=== PATIENT | female | born 1940 | race Two or more races ===

== ENCOUNTER → 2016-12-03 | Outpatient (REF) | payer MEDICARE ==
[2016-12-03 13:11] LABS: MEAN CORPUSCULAR HEMOGLOBIN 29.9 pg (27.0-33.0); MEAN CORPUSCULAR HGB CONC 33.2 g/dl (32.0-36.5); RED CELL DISTRIBUTION WIDTH 12.8 % (11.5-14.5); WHITE BLOOD COUNT 5.2 10^3/uL (4.0-10.0)
[2016-12-03 13:47] LABS: ALBUMIN/GLOBULIN RATIO 1.25 (1.00-1.93); ALKALINE PHOSPHATASE 153 U/L (45-117); ALT/SGPT 21 U/L (12-78); ANION GAP 8 MEQ/L (8-16); AST/SGOT 18 U/L (15-37); BILIRUBIN,TOTAL 0.6 MG/DL (0.2-1.0); BLOOD UREA NITROGEN 17 MG/DL (7-18); CALCIUM LEVEL 9.1 MG/DL (8.8-10.2); CARBON DIOXIDE LEVEL 30 MEQ/L (21-32); CHLORIDE LEVEL 104 MEQ/L (98-107); CHOLESTEROL LEVEL 172 MG/DL (<200); CREATININE FOR GFR 0.72 MG/DL (0.55-1.02); GLOMERULAR FILTRATION RATE > 60.0 (>39); GLUCOSE, FASTING 78 MG/DL (83-110); POTASSIUM SERUM 3.9 MEQ/L (3.5-5.1); SODIUM LEVEL 142 MEQ/L (136-145); TOTAL PROTEIN 7.2 GM/DL (6.4-8.2); TRIGLYCERIDES LEVEL 201 MG/DL (<150)
== END ==
LOC: M SFHCPLAZ 10:15
PROVIDERS: ATTEND Nurse Practitioner Adult Health
DX: I10 Essential (primary) hypertension (principal); E55.9 Vitamin D deficiency, unspecified; E78.2 Mixed hyperlipidemia
CPT/HCPCS: 36415; 80053; 80061; 82306; 85027; G0463

== ENCOUNTER 2017-06-23 19:24 | Inpatient (IN) | payer MEDICARE ==
[2017-06-23] MEDS: MORPHINE 2 MG/ML 1ML SYRINGE (J2270) IV (20:05)
[2017-06-23] MEDS: MORPHINE 4 MG/ML 1ML VIAL/SYRINGE (J2270) IV (20:54)
[2017-06-23] MEDS ORDERED: PROPOFOL 200 MG/20 ML VIAL As Ordered (22:06)
[2017-06-23 22:10] LABS: HEMATOCRIT 37.4 % (36.0-47.0); HEMOGLOBIN 12.4 g/dl (12.0-15.5); MEAN CORPUSCULAR HEMOGLOBIN 29.5 pg (27.0-33.0); MEAN CORPUSCULAR HGB CONC 33.2 g/dl (32.0-36.5); PLATELET COUNT, AUTOMATED 394 10^3/uL (150-450); RED CELL DISTRIBUTION WIDTH 12.8 % (11.5-14.5); WHITE BLOOD COUNT 17.1 10^3/uL (4.0-10.0)
[2017-06-23 22:14] LABS: INR 1.05; PROTHROMBIN TIME 13.9 SECONDS (12.4-14.5)
[2017-06-23 22:15] LABS: PARTIAL THROMBOPLASTIN TIME 27.1 SECONDS (26.8-37.9)
[2017-06-23] MEDS ORDERED: oxyCODONE 5MG TAB PO ×2 (22:15)
[2017-06-23] MEDS ORDERED: MORPHINE 4 MG/ML 1ML VIAL/SYRINGE (J2270) IV (22:15)
[2017-06-23 22:19] LABS: ANION GAP 13 MEQ/L (8-16); BLOOD UREA NITROGEN 29 MG/DL (7-18); CALCIUM LEVEL 9.1 MG/DL (8.8-10.2); CARBON DIOXIDE LEVEL 24 MEQ/L (21-32); CHLORIDE LEVEL 102 MEQ/L (98-107); CREATININE FOR GFR 1.42 MG/DL (0.55-1.30); GLOMERULAR FILTRATION RATE 38.4 (>39); GLUCOSE, FASTING 199 MG/DL (70-100); POTASSIUM SERUM 3.4 MEQ/L (3.5-5.1); SODIUM LEVEL 139 MEQ/L (136-145)
[2017-06-23] MEDS: PROPOFOL 200 MG/20 ML VIAL IV (23:45)
[2017-06-24] MEDS ORDERED: LIDOCAINE 2% INJ 100 MG/5 ML SDV (FOR ANES.) As Ordered (01:18)
[2017-06-24] MEDS ORDERED: fentaNYL 250 MCG/5 ML INJECTION (J3010) As Ordered (01:18)
[2017-06-24] MEDS ORDERED: ePHEDrine SULFATE 25 MG/5 ML(5MG/ML) SYRINGE As Ordered (01:18)
[2017-06-24] MEDS ORDERED: HYDROmorphone HCL 2 MG/ML 1ML VIAL (J1170) As Ordered (01:18)
[2017-06-24] MEDS ORDERED: dexameTHASONE 4 MG/ML 1ML VIAL (J1100) As Ordered (01:18)
[2017-06-24] MEDS ORDERED: MIDAZOLAM INJ 2 MG/2 ML VIAL (J2250) As Ordered (01:19)
[2017-06-24] MEDS ORDERED: PHENYLephrine HCL 500 MCG/5 ML (100MCG/ML) SYRINGE (J2370) As Ordered (01:19)
[2017-06-24] MEDS ORDERED: PROPOFOL 200 MG/20 ML VIAL As Ordered (01:19)
[2017-06-24] MEDS ORDERED: ONDANSETRON 4MG/2ML VIAL (J2405) As Ordered ×2 (01:19→09:39)
[2017-06-24] MEDS ORDERED: ROCURONIUM BROMIDE 50 MG/5 ML VIAL As Ordered (01:19)
[2017-06-24] MEDS: ceFAZolin 1GM INJ (J0690 PER 500MG) As Ordered (02:05)
[2017-06-24] MEDS ORDERED: SUGAMMADEX SODIUM 500 MG/5 ML VIAL (BRIDION) As Ordered (02:18)
[2017-06-24] MEDS ORDERED: HYDROmorphone HCL 1 MG/ML SYRINGE (J1170) IV (04:15)
[2017-06-24] MEDS ORDERED: fentaNYL 100 MCG/2 ML INJECTION (J3010) IV (04:15)
[2017-06-24] MEDS: LR 1,000 ML IV ×3 (04:15→06:08)
[2017-06-24] MEDS ORDERED: ONDANSETRON 4MG/2ML VIAL (J2405) IV (04:15)
[2017-06-24] MEDS: SIMVASTATIN 20 MG TAB PO ×2 (05:08→22:03)
[2017-06-24] MEDS: ACETAMINOPHEN 500 MG TAB PO ×4 (06:00→23:03)
[2017-06-24] MEDS ORDERED: FLEET ENEMA PR (06:15)
[2017-06-24] MEDS ORDERED: MORPHINE 4 MG/ML 1ML VIAL/SYRINGE (J2270) IV (06:15)
[2017-06-24 07:16] LABS: BASO % 0.1 % (0.0-1.0); HEMATOCRIT 28.1 % (36.0-47.0); IMMATURE GRANULOCYTE % 0.4 % (0-3.0); LYMPH # 0.6 10^3/uL (1.5-4.5); LYMPH % 4.9 % (24.0-44.0); MEAN CORPUSCULAR HEMOGLOBIN 29.5 pg (27.0-33.0); MEAN CORPUSCULAR HGB CONC 33.1 g/dl (32.0-36.5); MEAN CORPUSCULAR VOLUME 89.2 fl (80.0-96.0); MONO # 0.6 10^3/uL (0.0-0.8); MONO % 5.2 % (0.0-5.0); NEUTROPHILS # 10.6 10^3/uL (1.8-7.7); NEUTROPHILS % 89.4 % (36.0-66.0); RED BLOOD COUNT 3.15 10^6/uL (4.00-5.40); WHITE BLOOD COUNT 11.9 10^3/uL (4.0-10.0)
[2017-06-24 07:20] LABS: HEMOGLOBIN 9.3 g/dl (12.0-15.5)
[2017-06-24 07:21] LABS: PLATELET COUNT, AUTOMATED 261 10^3/uL (150-450)
[2017-06-24 07:33] LABS: ANION GAP 10 MEQ/L (8-16); BLOOD UREA NITROGEN 28 MG/DL (7-18); CALCIUM LEVEL 8.3 MG/DL (8.8-10.2); CARBON DIOXIDE LEVEL 23 MEQ/L (21-32); CHLORIDE LEVEL 110 MEQ/L (98-107); CREATININE FOR GFR 1.24 MG/DL (0.55-1.30); GLOMERULAR FILTRATION RATE 44.9 (>39); GLUCOSE, FASTING 167 MG/DL (70-100); POTASSIUM SERUM 3.7 MEQ/L (3.5-5.1); SODIUM LEVEL 143 MEQ/L (136-145)
[2017-06-24] MEDS: ONDANSETRON 4MG/2ML VIAL (J2405) IV (10:00)
[2017-06-24] MEDS: VITAMIN D 1,000 INTERNATIONAL UNITS TABLET PO (10:02)
[2017-06-24] MEDS: OYSTER SHELL CALCIUM 500 MG TAB PO (10:02)
[2017-06-24] MEDS: CEFAZOLIN SOD 1 GM in APPROPRIATE DILUENT 1 EA IV ×2 (10:02→17:01)
[2017-06-24] MEDS: SENOKOT S TAB PO ×2 (10:02→22:02)
[2017-06-24] MEDS: ENOXAPARIN 30 MG/0.3 ML SYR (J1650) SC (10:04)
[2017-06-24] MEDS: MIRALAX *UNIT DOSE* 17GM PACKET PO (10:04)
[2017-06-24] MEDS: MOM 30ML SUSPENSION UDC PO (10:39)
[2017-06-24] MEDS: NS 1,000 ML IV (10:39)
[2017-06-24] MEDS: DESVENLAFAXINE ER 50 MG TABLET (PRISTIQ) PO (13:34)
[2017-06-24] MEDS: traMADol 50 MG TAB PO ×2 (15:39→22:03)
[2017-06-24] MEDS ORDERED: WARFARIN SOD 5 MG TAB PO (17:00)
[2017-06-25] MEDS: ONDANSETRON 4MG/2ML VIAL (J2405) IV (05:43)
[2017-06-25] MEDS: ACETAMINOPHEN 500 MG TAB PO ×2 (05:44→11:41)
[2017-06-25] MEDS: traMADol 50 MG TAB PO ×2 (05:44→09:41)
[2017-06-25 07:45] LABS: HEMATOCRIT 26.2 % (36.0-47.0); HEMOGLOBIN 8.6 g/dl (12.0-15.5); MEAN CORPUSCULAR HGB CONC 32.8 g/dl (32.0-36.5); MEAN CORPUSCULAR VOLUME 91.3 fl (80.0-96.0); PLATELET COUNT, AUTOMATED 245 10^3/uL (150-450); RED BLOOD COUNT 2.87 10^6/uL (4.00-5.40); RED CELL DISTRIBUTION WIDTH 13.1 % (11.5-14.5)
[2017-06-25 08:02] LABS: ANION GAP 7 MEQ/L (8-16); BLOOD UREA NITROGEN 26 MG/DL (7-18); CALCIUM LEVEL 8.2 MG/DL (8.8-10.2); CARBON DIOXIDE LEVEL 25 MEQ/L (21-32); CHLORIDE LEVEL 108 MEQ/L (98-107); CREATININE FOR GFR 0.96 MG/DL (0.55-1.30); GLOMERULAR FILTRATION RATE > 60.0 (>39); GLUCOSE, FASTING 99 MG/DL (70-100); POTASSIUM SERUM 3.8 MEQ/L (3.5-5.1); SODIUM LEVEL 140 MEQ/L (136-145)
[2017-06-25] MEDS ORDERED: traMADol 50 MG TAB PO (08:45)
[2017-06-25] MEDS: VITAMIN D 1,000 INTERNATIONAL UNITS TABLET PO (09:00)
[2017-06-25] MEDS: MIRALAX *UNIT DOSE* 17GM PACKET PO (09:00)
[2017-06-25] MEDS: OYSTER SHELL CALCIUM 500 MG TAB PO (09:00)
[2017-06-25] MEDS: ENOXAPARIN 40 MG/0.4 ML SYRINGE (J1650) SC (09:00)
[2017-06-25] MEDS: SENOKOT S TAB PO (09:00)
[2017-06-25] MEDS: MOM 30ML SUSPENSION UDC PO (09:00)
[2017-06-25] MEDS: DESVENLAFAXINE ER 50 MG TABLET (PRISTIQ) PO (10:18)
== END 2017-06-25 16:45 | DRG 480 ==
LOC: M MSPAV 06-24 04:56 → M ED 19:24 → M ED INP 21:30 → M MS5PR 06-24 15:25
PROC: 0QS606Z Reposition Right Upper Femur with Intramedullary Internal Fixation Device, Open Approach (ICD-10-PCS; principal; 2017-06-24 00:43)
PROC: 0PS Upper Bones, Reposition (ICD-10-PCS; 2017-06-24 00:43)
DX: S42.141A Displaced fracture of glenoid cavity of scapula, right shoulder, initial encounter for closed fracture (principal); S72.001A Fracture of unspecified part of neck of right femur, initial encounter for closed fracture; N17.9 Acute kidney failure, unspecified; I10 Essential (primary) hypertension; E78.5 Hyperlipidemia, unspecified; F41.9 Anxiety disorder, unspecified; W18.30XA Fall on same level, unspecified, initial encounter; Y92.009 Unspecified place in unspecified non-institutional (private) residence as the place of occurrence of the external cause; Z79.899 Other long term (current) drug therapy; Z88.2 Allergy status to sulfonamides; Z87.891 Personal history of nicotine dependence; F32.9 Major depressive disorder, single episode, unspecified; J44.9 Chronic obstructive pulmonary disease, unspecified

== ENCOUNTER 2017-06-25 15:48 | Inpatient (IN) | payer MEDICARE ==
[~2017-06-25 15:48] MED LIST: BISACODYL 10 MG SUPP PR; BISACODYL 5 MG TAB PO; FLEET ENEMA PR; traMADol 50 MG TAB PO
[2017-06-25] MEDS: ONDANSETRON 4MG/2ML VIAL (J2405) IV (18:18)
[2017-06-25] MEDS: SIMVASTATIN 20 MG TAB PO (20:34)
[2017-06-25] MEDS: SENOKOT S TAB PO (20:34)
[2017-06-25] MEDS: WARFARIN SOD 5 MG TAB PO (20:34)
[2017-06-25] MEDS: METOCLOPRAMIDE 10 MG TAB PO (20:34)
[2017-06-25] MEDS: ACETAMINOPHEN 500 MG TAB PO (20:35)
[2017-06-25] MEDS: DICLOFENAC EPOLAMINE 1.3 % PATCH TOP (20:36)
[2017-06-26 06:42] LABS: BASO % 0.2 % (0.0-1.0); EOS # 0.2 10^3/uL (0.0-0.50); EOS % 2.2 % (0.0-3.0); HEMATOCRIT 25.3 % (36.0-47.0); HEMOGLOBIN 8.4 g/dl (12.0-15.5); IMMATURE GRANULOCYTE % 0.4 % (0-3.0); LYMPH # 0.9 10^3/uL (1.5-4.5); MEAN CORPUSCULAR HEMOGLOBIN 29.8 pg (27.0-33.0); MEAN CORPUSCULAR HGB CONC 33.2 g/dl (32.0-36.5); MEAN CORPUSCULAR VOLUME 89.7 fl (80.0-96.0); MONO # 0.6 10^3/uL (0.0-0.8); MONO % 6.9 % (0.0-5.0); NEUTROPHILS # 6.4 10^3/uL (1.8-7.7); NEUTROPHILS % 79.3 % (36.0-66.0); PLATELET COUNT, AUTOMATED 230 10^3/uL (150-450); RED BLOOD COUNT 2.82 10^6/uL (4.00-5.40); RED CELL DISTRIBUTION WIDTH 12.8 % (11.5-14.5); WHITE BLOOD COUNT 8.1 10^3/uL (4.0-10.0)
[2017-06-26 07:08] LABS: ALBUMIN 2.7 GM/DL (3.2-5.2); ALKALINE PHOSPHATASE 98 U/L (45-117); ALT/SGPT 22 U/L (12-78); ANION GAP 7 MEQ/L (8-16); AST/SGOT 32 U/L (7-37); BILIRUBIN,TOTAL 0.6 MG/DL (0.2-1.0); BLOOD UREA NITROGEN 20 MG/DL (7-18); CALCIUM LEVEL 8.1 MG/DL (8.8-10.2); CARBON DIOXIDE LEVEL 31 MEQ/L (21-32); CHLORIDE LEVEL 103 MEQ/L (98-107); CREATININE FOR GFR 0.69 MG/DL (0.55-1.30); GLOMERULAR FILTRATION RATE > 60.0 (>39); GLUCOSE, FASTING 88 MG/DL (70-100); POTASSIUM SERUM 3.6 MEQ/L (3.5-5.1); SODIUM LEVEL 141 MEQ/L (136-145); TOTAL PROTEIN 5.4 GM/DL (6.4-8.2)
[2017-06-26] MEDS: traMADol 50 MG TAB PO (07:44)
[2017-06-26] MEDS: ENOXAPARIN 40 MG/0.4 ML SYRINGE (J1650) SC (08:01)
[2017-06-26] MEDS ORDERED: OYSTER SHELL CALCIUM 500 MG TAB PO (09:00)
[2017-06-26] MEDS: OYSTER SHELL CALCIUM 500 MG TAB PO (09:47)
[2017-06-26] MEDS: MIRALAX *UNIT DOSE* 17GM PACKET PO (09:47)
[2017-06-26] MEDS: DESVENLAFAXINE ER 50 MG TABLET (PRISTIQ) PO (09:48)
[2017-06-26] MEDS: ACETAMINOPHEN 500 MG TAB PO ×3 (09:48→21:06)
[2017-06-26] MEDS: MULTIVITAMINS/MINERALS THERAP 1 TAB PO (09:49)
[2017-06-26] MEDS: VITAMIN D 1,000 INTERNATIONAL UNITS TABLET PO (09:49)
[2017-06-26] MEDS: SENOKOT S TAB PO ×2 (09:49→21:06)
[2017-06-26] MEDS: METOCLOPRAMIDE 10 MG TAB PO (09:49)
[2017-06-26] MEDS: DICLOFENAC EPOLAMINE 1.3 % PATCH TOP ×2 (09:50→21:06)
[2017-06-26] MEDS: SIMVASTATIN 20 MG TAB PO (21:06)
[2017-06-27] MEDS: MIRALAX *UNIT DOSE* 17GM PACKET PO (08:04)
[2017-06-27] MEDS: ENOXAPARIN 40 MG/0.4 ML SYRINGE (J1650) SC (08:04)
[2017-06-27] MEDS: DICLOFENAC EPOLAMINE 1.3 % PATCH TOP ×2 (08:04→21:18)
[2017-06-27] MEDS: ACETAMINOPHEN 500 MG TAB PO ×3 (08:05→21:18)
[2017-06-27] MEDS: ONDANSETRON 4 MG TAB (S0181) PO (08:05)
[2017-06-27] MEDS: DESVENLAFAXINE ER 50 MG TABLET (PRISTIQ) PO (08:06)
[2017-06-27] MEDS: MULTIVITAMINS/MINERALS THERAP 1 TAB PO (08:06)
[2017-06-27] MEDS: OYSTER SHELL CALCIUM 500 MG TAB PO (08:06)
[2017-06-27] MEDS: traMADol 50 MG TAB PO ×2 (08:06→14:32)
[2017-06-27] MEDS: SENOKOT S TAB PO ×2 (08:06→21:00)
[2017-06-27] MEDS: VITAMIN D 1,000 INTERNATIONAL UNITS TABLET PO (08:06)
[2017-06-27] MEDS: METOCLOPRAMIDE 10 MG TAB PO (08:06)
[2017-06-27] MEDS: SIMVASTATIN 20 MG TAB PO (21:18)
[2017-06-28 07:01] LABS: HEMATOCRIT 23.3 % (36.0-47.0); HEMOGLOBIN 7.7 g/dl (12.0-15.5); MEAN CORPUSCULAR HEMOGLOBIN 29.5 pg (27.0-33.0); MEAN CORPUSCULAR VOLUME 89.3 fl (80.0-96.0); PLATELET COUNT, AUTOMATED 266 10^3/uL (150-450); RED BLOOD COUNT 2.61 10^6/uL (4.00-5.40); RED CELL DISTRIBUTION WIDTH 12.9 % (11.5-14.5); WHITE BLOOD COUNT 4.6 10^3/uL (4.0-10.0)
[2017-06-28] MEDS: OYSTER SHELL CALCIUM 500 MG TAB PO (08:08)
[2017-06-28] MEDS: MULTIVITAMINS/MINERALS THERAP 1 TAB PO (08:08)
[2017-06-28] MEDS: VITAMIN D 1,000 INTERNATIONAL UNITS TABLET PO (08:08)
[2017-06-28] MEDS: ACETAMINOPHEN 500 MG TAB PO ×3 (08:08→20:01)
[2017-06-28] MEDS: DESVENLAFAXINE ER 50 MG TABLET (PRISTIQ) PO (08:08)
[2017-06-28] MEDS: METOCLOPRAMIDE 10 MG TAB PO (08:08)
[2017-06-28] MEDS: SENOKOT S TAB PO ×2 (08:09→19:47)
[2017-06-28] MEDS: MIRALAX *UNIT DOSE* 17GM PACKET PO (08:09)
[2017-06-28] MEDS: ENOXAPARIN 40 MG/0.4 ML SYRINGE (J1650) SC (08:09)
[2017-06-28] MEDS: DICLOFENAC EPOLAMINE 1.3 % PATCH TOP ×2 (08:09→20:01)
[2017-06-28 10:15] LABS: HEMATOCRIT 25.4 % (36.0-47.0); HEMOGLOBIN 8.4 g/dl (12.0-15.5); MEAN CORPUSCULAR HEMOGLOBIN 29.7 pg (27.0-33.0); MEAN CORPUSCULAR HGB CONC 33.1 g/dl (32.0-36.5); MEAN CORPUSCULAR VOLUME 89.8 fl (80.0-96.0); PLATELET COUNT, AUTOMATED 357 10^3/uL (150-450); RED BLOOD COUNT 2.83 10^6/uL (4.00-5.40); RED CELL DISTRIBUTION WIDTH 12.8 % (11.5-14.5); WHITE BLOOD COUNT 6.4 10^3/uL (4.0-10.0)
[2017-06-28 15:14] LABS: FERRITIN 125 NG/ML (8-252); IRON (FE) 11 UG/DL (50-170); PERCENT SATURATION 5.4 % (13.2-45.0); TOTAL IRON BINDING CAPACITY 202 UG/DL (250-450)
[2017-06-28 15:31] LABS: FOLATE 20.5 NG/ML; VITAMIN B12 LEVEL 257 PG/ML
[2017-06-28] MEDS: SIMVASTATIN 20 MG TAB PO (20:00)
[2017-06-29] MEDS: traMADol 50 MG TAB PO ×2 (06:01→15:07)
[2017-06-29] MEDS: ONDANSETRON 4 MG TAB (S0181) PO (06:41)
[2017-06-29] MEDS: SENOKOT S TAB PO ×2 (07:14→21:47)
[2017-06-29] MEDS: MIRALAX *UNIT DOSE* 17GM PACKET PO (07:14)
[2017-06-29] MEDS: DESVENLAFAXINE ER 50 MG TABLET (PRISTIQ) PO (09:08)
[2017-06-29] MEDS: METOCLOPRAMIDE 10 MG TAB PO (09:08)
[2017-06-29] MEDS: VITAMIN D 1,000 INTERNATIONAL UNITS TABLET PO (09:08)
[2017-06-29] MEDS: MULTIVITAMINS/MINERALS THERAP 1 TAB PO (09:08)
[2017-06-29] MEDS: OYSTER SHELL CALCIUM 500 MG TAB PO (09:08)
[2017-06-29] MEDS: ENOXAPARIN 40 MG/0.4 ML SYRINGE (J1650) SC (09:09)
[2017-06-29] MEDS: DICLOFENAC EPOLAMINE 1.3 % PATCH TOP ×2 (09:09→21:47)
[2017-06-29] MEDS: ACETAMINOPHEN 500 MG TAB PO ×3 (10:19→21:47)
[2017-06-29 11:33] LABS: HEMATOCRIT 25.2 % (36.0-47.0); HEMOGLOBIN 8.3 g/dl (12.0-15.5); MEAN CORPUSCULAR HEMOGLOBIN 29.4 pg (27.0-33.0); MEAN CORPUSCULAR HGB CONC 32.9 g/dl (32.0-36.5); MEAN CORPUSCULAR VOLUME 89.4 fl (80.0-96.0); PLATELET COUNT, AUTOMATED 394 10^3/uL (150-450); RED BLOOD COUNT 2.82 10^6/uL (4.00-5.40); RED CELL DISTRIBUTION WIDTH 12.9 % (11.5-14.5); WHITE BLOOD COUNT 10.4 10^3/uL (4.0-10.0)
[2017-06-29 14:59] LABS: ALBUMIN 3.2 GM/DL (3.2-5.2); ALKALINE PHOSPHATASE 127 U/L (45-117); ALT/SGPT 24 U/L (12-78); ANION GAP 8 MEQ/L (8-16); AST/SGOT 31 U/L (7-37); BILIRUBIN,TOTAL 0.9 MG/DL (0.2-1.0); BLOOD UREA NITROGEN 20 MG/DL (7-18); CALCIUM LEVEL 8.3 MG/DL (8.8-10.2); CARBON DIOXIDE LEVEL 31 MEQ/L (21-32); CHLORIDE LEVEL 101 MEQ/L (98-107); CREATININE FOR GFR 0.88 MG/DL (0.55-1.30); GLOMERULAR FILTRATION RATE > 60.0 (>39); GLUCOSE, FASTING 155 MG/DL (70-100); POTASSIUM SERUM 3.4 MEQ/L (3.5-5.1); SODIUM LEVEL 140 MEQ/L (136-145); TOTAL PROTEIN 6.4 GM/DL (6.4-8.2)
[2017-06-29 16:06] LABS: IMMEDIATE SPIN CROSSMATCH 1 1
[2017-06-29] MEDS: SIMVASTATIN 20 MG TAB PO (21:47)
[2017-06-30] MEDS: NS 1,000 ML IV (05:32)
[2017-06-30] MEDS: OYSTER SHELL CALCIUM 500 MG TAB PO (07:40)
[2017-06-30] MEDS: MIRALAX *UNIT DOSE* 17GM PACKET PO (07:40)
[2017-06-30] MEDS: DESVENLAFAXINE ER 50 MG TABLET (PRISTIQ) PO (07:40)
[2017-06-30] MEDS: SENOKOT S TAB PO ×2 (07:40→20:07)
[2017-06-30] MEDS: MULTIVITAMINS/MINERALS THERAP 1 TAB PO (07:41)
[2017-06-30] MEDS: ACETAMINOPHEN 500 MG TAB PO ×3 (07:41→16:00)
[2017-06-30] MEDS: VITAMIN D 1,000 INTERNATIONAL UNITS TABLET PO (07:41)
[2017-06-30 07:49] LABS: HEMATOCRIT 26.8 % (36.0-47.0); HEMOGLOBIN 9.1 g/dl (12.0-15.5); MEAN CORPUSCULAR HEMOGLOBIN 29.5 pg (27.0-33.0); PLATELET COUNT, AUTOMATED 346 10^3/uL (150-450); RED BLOOD COUNT 3.08 10^6/uL (4.00-5.40); RED CELL DISTRIBUTION WIDTH 13.4 % (11.5-14.5); WHITE BLOOD COUNT 9.6 10^3/uL (4.0-10.0)
[2017-06-30 08:19] LABS: ALKALINE PHOSPHATASE 99 U/L (45-117); ALT/SGPT 22 U/L (12-78); ANION GAP 5 MEQ/L (8-16); AST/SGOT 22 U/L (7-37); BILIRUBIN,TOTAL 0.7 MG/DL (0.2-1.0); BLOOD UREA NITROGEN 19 MG/DL (7-18); CALCIUM LEVEL 8.2 MG/DL (8.8-10.2); CARBON DIOXIDE LEVEL 31 MEQ/L (21-32); CHLORIDE LEVEL 105 MEQ/L (98-107); CREATININE FOR GFR 0.57 MG/DL (0.55-1.30); GLOMERULAR FILTRATION RATE > 60.0 (>39); GLUCOSE, FASTING 93 MG/DL (70-100); POTASSIUM SERUM 3.7 MEQ/L (3.5-5.1); SODIUM LEVEL 141 MEQ/L (136-145); TOTAL PROTEIN 5.8 GM/DL (6.4-8.2)
[2017-06-30] MEDS: METOCLOPRAMIDE 10 MG TAB PO (08:28)
[2017-06-30] MEDS: DICLOFENAC EPOLAMINE 1.3 % PATCH TOP ×2 (08:28→20:07)
[2017-06-30] MEDS: ONDANSETRON 4 MG TAB (S0181) PO (08:28)
[2017-06-30 08:58] LABS: ALBUMIN 2.5 GM/DL (3.2-5.2); ALBUMIN/GLOBULIN RATIO 0.76 (1.00-1.93)
[2017-06-30] MEDS: traMADol 50 MG TAB PO (12:13)
[2017-06-30] MEDS ORDERED: ceFAZolin 2 GM/D5W 50 ML IV BAG (J0690 PER 500MG) As Ordered (13:49)
[2017-06-30] MEDS ORDERED: fentaNYL 100 MCG/2 ML INJECTION (J3010) As Ordered ×3 (13:59→17:00)
[2017-06-30] MEDS ORDERED: PROPOFOL 200 MG/20 ML VIAL As Ordered (14:02)
[2017-06-30] MEDS ORDERED: ROCURONIUM BROMIDE 50 MG/5 ML VIAL As Ordered (14:02)
[2017-06-30] MEDS ORDERED: LIDOCAINE 2% INJ 100 MG/5 ML SDV (FOR ANES.) As Ordered (14:02)
[2017-06-30] MEDS ORDERED: MIDAZOLAM INJ 2 MG/2 ML VIAL (J2250) As Ordered ×2 (14:22→14:49)
[2017-06-30] MEDS ORDERED: ESMOLOL INJ 100MG/10ML VIAL As Ordered (15:00)
[2017-06-30] MEDS ORDERED: ONDANSETRON 4MG/2ML VIAL (J2405) As Ordered (15:22)
[2017-06-30] MEDS: fentaNYL 100 MCG/2 ML INJECTION (J3010) IV (15:30)
[2017-06-30] MEDS: MIDAZOLAM INJ 2 MG/2 ML VIAL (J2250) IV (15:30)
[2017-06-30] MEDS ORDERED: dexameTHASONE 10 MG/1 ML VIAL PRES.FREE (J1100) (15:51)
[2017-06-30] MEDS ORDERED: LIDOCAINE 1% MDV 20ML VIAL (15:51)
[2017-06-30] MEDS ORDERED: ROPIvacaine 0.5% 30 ML INJECTION (J2795 PER 1MG) (15:51)
[2017-06-30 16:28] LABS: APPEARANCE, URINE TURBID (CLEAR); BACTERIA, URINE AUTO 3+ (NEGATIVE); BILIRUBIN, URINE AUTO NEGATIVE (NEGATIVE); BLOOD, URINE BLOOD 2+ (NEGATIVE); COLOR, URINE YELLOW (YELLOW); GLUCOSE, URINE (UA) AUTO NEGATIVE (NEGATIVE); KETONE, URINE AUTO NEGATIVE (NEGATIVE); LEUKOCYTE ESTERASE, URINE AUTO 3+ (NEGATIVE); NITRITE, URINE AUTO NEGATIVE (NEGATIVE); PROTEIN, URINE AUTO 2+ mg/dL (NEGATIVE); RBC, URINE AUTO TNTC /HPF (0-3); SPECIFIC GRAVITY URINE AUTO 1.014 (1.002-1.035); SQUAMOUS EPITHELIAL CELL UR AU 0 /HPF (0-6); UROBILINOGEN, URINE AUTO 0.2 mg/dL (0.0-2.0); WBC, URINE AUTO TNTC /HPF (0-3)
[2017-06-30] MEDS ORDERED: NEOSTIGMINE 10 MG/10 ML VIAL (J2710) As Ordered (17:32)
[2017-06-30] MEDS ORDERED: GLYCOPYRROLATE INJ 0.2 MG/ML 2 ML VIAL As Ordered (17:32)
[2017-06-30] MEDS ORDERED: ACETAMINOPHEN TAB 650MG DOSE (2X325MG) PO (19:15)
[2017-06-30] MEDS ORDERED: FLEET ENEMA PR (19:15)
[2017-06-30] MEDS: LR 1,000 ML IV ×2 (19:15→19:30)
[2017-06-30] MEDS ORDERED: ONDANSETRON 4MG/2ML VIAL (J2405) IV ×2 (19:15→19:30)
[2017-06-30] MEDS: SIMVASTATIN 20 MG TAB PO (20:07)
[2017-06-30] MEDS: LevoFLOXacin 250 MG TABLET PO (20:07)
[2017-06-30] MEDS: CEFAZOLIN SOD 1 GM in APPROPRIATE DILUENT 1 EA IV (23:03)
[2017-07-01] MEDS: NORCO, ANEXSIA 5/325MG TABLET (HYDROcodone/ACETAMINOPHEN) PO ×2 (03:05→07:05)
[2017-07-01] MEDS: MORPHINE 4 MG/ML 1ML VIAL/SYRINGE (J2270) IV (05:26)
[2017-07-01] MEDS: CEFAZOLIN SOD 1 GM in APPROPRIATE DILUENT 1 EA IV (06:37)
[2017-07-01 06:57] LABS: HEMATOCRIT 28.2 % (36.0-47.0); HEMOGLOBIN 9.2 g/dl (12.0-15.5); MEAN CORPUSCULAR HGB CONC 32.6 g/dl (32.0-36.5); PLATELET COUNT, AUTOMATED 445 10^3/uL (150-450); RED BLOOD COUNT 3.17 10^6/uL (4.00-5.40); RED CELL DISTRIBUTION WIDTH 13.2 % (11.5-14.5); WHITE BLOOD COUNT 12.6 10^3/uL (4.0-10.0)
[2017-07-01] MEDS: MULTIVITAMINS/MINERALS THERAP 1 TAB PO (08:38)
[2017-07-01] MEDS: VITAMIN D 1,000 INTERNATIONAL UNITS TABLET PO (08:38)
[2017-07-01] MEDS: DESVENLAFAXINE ER 50 MG TABLET (PRISTIQ) PO (08:38)
[2017-07-01] MEDS: SENOKOT S TAB PO ×2 (08:38→20:41)
[2017-07-01] MEDS: ENOXAPARIN 40 MG/0.4 ML SYRINGE (J1650) SC (08:38)
[2017-07-01] MEDS: DICLOFENAC EPOLAMINE 1.3 % PATCH TOP ×2 (08:38→20:40)
[2017-07-01] MEDS: OYSTER SHELL CALCIUM 500 MG TAB PO (08:38)
[2017-07-01] MEDS: METOCLOPRAMIDE 10 MG TAB PO (08:38)
[2017-07-01] MEDS: MIRALAX *UNIT DOSE* 17GM PACKET PO (08:46)
[2017-07-01] MEDS ORDERED: oxyCODONE 5MG TAB PO (10:45)
[2017-07-01] MEDS ORDERED: ALPRAZolam 0.25 MG TAB PO (10:45)
[2017-07-01] MEDS ORDERED: PILL CRUSHER/CUTTER 1 EACH XX (11:00)
[2017-07-01] MEDS: ACETAMINOPHEN 325 MG TAB PO ×3 (11:07→20:41)
[2017-07-01] MEDS: MORPHINE 15 MG SA TAB PO ×2 (11:07→20:41)
[2017-07-01] MEDS: oxyCODONE 5MG TAB PO (14:07)
[2017-07-01] MEDS: LevoFLOXacin 250 MG TABLET PO (20:40)
[2017-07-01] MEDS: SIMVASTATIN 20 MG TAB PO (20:40)
[2017-07-02] MEDS: oxyCODONE 5MG TAB PO ×4 (00:37→19:45)
[2017-07-02] MEDS: ENOXAPARIN 40 MG/0.4 ML SYRINGE (J1650) SC (08:28)
[2017-07-02] MEDS: MULTIVITAMINS/MINERALS THERAP 1 TAB PO (08:28)
[2017-07-02] MEDS: hydroCHLOROthiazide 12.5 MG CAPSULE PO (08:29)
[2017-07-02] MEDS: QUINAPRIL 20 MG TAB PO (08:29)
[2017-07-02] MEDS: DESVENLAFAXINE ER 50 MG TABLET (PRISTIQ) PO (08:29)
[2017-07-02] MEDS: SENOKOT S TAB PO ×2 (08:29→20:17)
[2017-07-02] MEDS: METOCLOPRAMIDE 10 MG TAB PO (08:29)
[2017-07-02] MEDS: MORPHINE 15 MG SA TAB PO ×2 (08:29→20:17)
[2017-07-02] MEDS: OYSTER SHELL CALCIUM 500 MG TAB PO (08:30)
[2017-07-02] MEDS: VITAMIN D 1,000 INTERNATIONAL UNITS TABLET PO (08:30)
[2017-07-02] MEDS: ACETAMINOPHEN 325 MG TAB PO ×3 (08:30→20:17)
[2017-07-02] MEDS: MIRALAX *UNIT DOSE* 17GM PACKET PO (08:30)
[2017-07-02] MEDS: DICLOFENAC EPOLAMINE 1.3 % PATCH TOP ×2 (08:31→20:18)
[2017-07-02] MEDS: LACTOBACILLUS ACIDOPHILUS CAP (BACID) PO ×2 (11:59→20:17)
[2017-07-02] MEDS: SIMVASTATIN 20 MG TAB PO (20:17)
[2017-07-02] MEDS: LevoFLOXacin 250 MG TABLET PO (20:17)
[2017-07-03] MEDS: oxyCODONE 5MG TAB PO ×3 (05:45→21:52)
[2017-07-03] MEDS: MIRALAX *UNIT DOSE* 17GM PACKET PO (09:23)
[2017-07-03] MEDS: LACTOBACILLUS ACIDOPHILUS CAP (BACID) PO ×2 (09:23→20:50)
[2017-07-03] MEDS: ENOXAPARIN 40 MG/0.4 ML SYRINGE (J1650) SC (09:23)
[2017-07-03] MEDS: hydroCHLOROthiazide 12.5 MG CAPSULE PO (09:23)
[2017-07-03] MEDS: ACETAMINOPHEN 325 MG TAB PO ×3 (09:24→20:50)
[2017-07-03] MEDS: DESVENLAFAXINE ER 50 MG TABLET (PRISTIQ) PO (09:25)
[2017-07-03] MEDS: MORPHINE 15 MG SA TAB PO ×2 (09:25→20:51)
[2017-07-03] MEDS: QUINAPRIL 20 MG TAB PO (09:25)
[2017-07-03] MEDS: MULTIVITAMINS/MINERALS THERAP 1 TAB PO (09:25)
[2017-07-03] MEDS: VITAMIN D 1,000 INTERNATIONAL UNITS TABLET PO (09:25)
[2017-07-03] MEDS: SENOKOT S TAB PO ×2 (09:25→20:50)
[2017-07-03] MEDS: DICLOFENAC EPOLAMINE 1.3 % PATCH TOP ×2 (09:26→20:49)
[2017-07-03] MEDS: METOCLOPRAMIDE 10 MG TAB PO (09:26)
[2017-07-03] MEDS: OYSTER SHELL CALCIUM 500 MG TAB PO (09:27)
[2017-07-03] MEDS: LevoFLOXacin 250 MG TABLET PO (20:50)
[2017-07-03] MEDS: SIMVASTATIN 20 MG TAB PO (20:51)
[2017-07-04] MEDS: BETHANECHOL 10 MG TAB PO ×4 (02:21→20:26)
[2017-07-04] MEDS: ENOXAPARIN 40 MG/0.4 ML SYRINGE (J1650) SC (08:51)
[2017-07-04] MEDS: QUINAPRIL 20 MG TAB PO (08:52)
[2017-07-04] MEDS: MORPHINE 15 MG SA TAB PO ×2 (08:53→20:26)
[2017-07-04] MEDS: SENOKOT S TAB PO ×2 (08:54→20:26)
[2017-07-04] MEDS: VITAMIN D 1,000 INTERNATIONAL UNITS TABLET PO (08:54)
[2017-07-04] MEDS: OYSTER SHELL CALCIUM 500 MG TAB PO (08:54)
[2017-07-04] MEDS: METOCLOPRAMIDE 10 MG TAB PO (08:55)
[2017-07-04] MEDS: hydroCHLOROthiazide 12.5 MG CAPSULE PO (08:55)
[2017-07-04] MEDS: DESVENLAFAXINE ER 50 MG TABLET (PRISTIQ) PO (08:55)
[2017-07-04] MEDS: MULTIVITAMINS/MINERALS THERAP 1 TAB PO (08:55)
[2017-07-04] MEDS: ACETAMINOPHEN 325 MG TAB PO ×3 (08:55→20:26)
[2017-07-04] MEDS: DICLOFENAC EPOLAMINE 1.3 % PATCH TOP ×2 (08:56→20:25)
[2017-07-04] MEDS: LACTOBACILLUS ACIDOPHILUS CAP (BACID) PO ×2 (08:56→20:26)
[2017-07-04] MEDS: MIRALAX *UNIT DOSE* 17GM PACKET PO (08:56)
[2017-07-04] MEDS: SIMVASTATIN 20 MG TAB PO (20:25)
[2017-07-04] MEDS: LevoFLOXacin 250 MG TABLET PO (20:26)
[2017-07-05] MEDS: oxyCODONE 5MG TAB PO (04:12)
[2017-07-05 06:50] LABS: BASO % 0.2 % (0.0-1.0); EOS # 0.2 10^3/uL (0.0-0.50); HEMATOCRIT 28.9 % (36.0-47.0); HEMOGLOBIN 9.2 g/dl (12.0-15.5); IMMATURE GRANULOCYTE % 1.4 % (0-3.0); LYMPH # 1.7 10^3/uL (1.5-4.5); LYMPH % 18.8 % (24.0-44.0); MEAN CORPUSCULAR HEMOGLOBIN 29.4 pg (27.0-33.0); MEAN CORPUSCULAR HGB CONC 31.8 g/dl (32.0-36.5); MEAN CORPUSCULAR VOLUME 92.3 fl (80.0-96.0); MONO # 0.8 10^3/uL (0.0-0.8); MONO % 8.5 % (0.0-5.0); NEUTROPHILS # 6.3 10^3/uL (1.8-7.7); NEUTROPHILS % 69.1 % (36.0-66.0); PLATELET COUNT, AUTOMATED 489 10^3/uL (150-450); RED BLOOD COUNT 3.13 10^6/uL (4.00-5.40); RED CELL DISTRIBUTION WIDTH 13.7 % (11.5-14.5); WHITE BLOOD COUNT 9.2 10^3/uL (4.0-10.0)
[2017-07-05 07:06] LABS: ANION GAP 5 MEQ/L (8-16); BLOOD UREA NITROGEN 20 MG/DL (7-18); CALCIUM LEVEL 8.4 MG/DL (8.8-10.2); CARBON DIOXIDE LEVEL 31 MEQ/L (21-32); CHLORIDE LEVEL 103 MEQ/L (98-107); CREATININE FOR GFR 0.63 MG/DL (0.55-1.30); GLOMERULAR FILTRATION RATE > 60.0 (>39); GLUCOSE, FASTING 87 MG/DL (70-100); POTASSIUM SERUM 4.3 MEQ/L (3.5-5.1); SODIUM LEVEL 139 MEQ/L (136-145)
[2017-07-05] MEDS: MIRALAX *UNIT DOSE* 17GM PACKET PO (08:24)
[2017-07-05] MEDS: LACTOBACILLUS ACIDOPHILUS CAP (BACID) PO ×2 (08:25→20:56)
[2017-07-05] MEDS: ENOXAPARIN 40 MG/0.4 ML SYRINGE (J1650) SC (08:25)
[2017-07-05] MEDS: MULTIVITAMINS/MINERALS THERAP 1 TAB PO (08:25)
[2017-07-05] MEDS: DESVENLAFAXINE ER 50 MG TABLET (PRISTIQ) PO (08:25)
[2017-07-05] MEDS: SENOKOT S TAB PO ×2 (08:25→20:59)
[2017-07-05] MEDS: hydroCHLOROthiazide 12.5 MG CAPSULE PO (08:25)
[2017-07-05] MEDS: OYSTER SHELL CALCIUM 500 MG TAB PO (08:25)
[2017-07-05] MEDS: METOCLOPRAMIDE 10 MG TAB PO (08:26)
[2017-07-05] MEDS: BETHANECHOL 10 MG TAB PO ×3 (08:26→20:59)
[2017-07-05] MEDS: QUINAPRIL 20 MG TAB PO (08:26)
[2017-07-05] MEDS: ACETAMINOPHEN 325 MG TAB PO ×3 (08:27→20:57)
[2017-07-05] MEDS: VITAMIN D 1,000 INTERNATIONAL UNITS TABLET PO (08:27)
[2017-07-05] MEDS: DICLOFENAC EPOLAMINE 1.3 % PATCH TOP ×3 (08:27→20:56)
[2017-07-05] MEDS: MORPHINE 15 MG SA TAB PO ×2 (08:27→20:58)
[2017-07-05] MEDS: TAMSULOSIN 0.4 MG CAP PO (20:58)
[2017-07-05] MEDS: SIMVASTATIN 20 MG TAB PO (20:58)
[2017-07-06] MEDS: METOCLOPRAMIDE 10 MG TAB PO (08:22)
[2017-07-06] MEDS: ENOXAPARIN 40 MG/0.4 ML SYRINGE (J1650) SC (08:22)
[2017-07-06] MEDS: MIRALAX *UNIT DOSE* 17GM PACKET PO (08:22)
[2017-07-06] MEDS: LACTOBACILLUS ACIDOPHILUS CAP (BACID) PO (08:23)
[2017-07-06] MEDS: OYSTER SHELL CALCIUM 500 MG TAB PO (08:23)
[2017-07-06] MEDS: VITAMIN D 1,000 INTERNATIONAL UNITS TABLET PO (08:23)
[2017-07-06] MEDS: MULTIVITAMINS/MINERALS THERAP 1 TAB PO (08:23)
[2017-07-06] MEDS: MORPHINE 15 MG SA TAB PO (08:23)
[2017-07-06] MEDS: QUINAPRIL 20 MG TAB PO (08:24)
[2017-07-06] MEDS: DESVENLAFAXINE ER 50 MG TABLET (PRISTIQ) PO (08:24)
[2017-07-06] MEDS: ACETAMINOPHEN 325 MG TAB PO ×2 (08:24→15:48)
[2017-07-06] MEDS: BETHANECHOL 10 MG TAB PO ×2 (08:24→15:48)
[2017-07-06] MEDS: hydroCHLOROthiazide 12.5 MG CAPSULE PO (08:24)
[2017-07-06] MEDS: DICLOFENAC EPOLAMINE 1.3 % PATCH TOP (08:25)
[2017-07-06] MEDS: SENOKOT S TAB PO (08:25)
[2017-07-06] MEDS: oxyCODONE 5MG TAB PO (14:47)
== END 2017-07-06 17:05 | disposition home health service (06) | DRG 560 ==
LOC: M PM&R 15:48
PROC: 30233N1 Transfusion of Nonautologous Red Blood Cells into Peripheral Vein, Percutaneous Approach (ICD-10-PCS; principal; 2017-06-29)
DX: S72.001D Fracture of unspecified part of neck of right femur, subsequent encounter for closed fracture with routine healing (principal); D62 Acute posthemorrhagic anemia; N39.0 Urinary tract infection, site not specified; S42.251D Displaced fracture of greater tuberosity of right humerus, subsequent encounter for fracture with routine healing; E78.00 Pure hypercholesterolemia, unspecified; B96.5 Pseudomonas (aeruginosa) (mallei) (pseudomallei) as the cause of diseases classified elsewhere; R33.9 Retention of urine, unspecified; M81.0 Age-related osteoporosis without current pathological fracture; E78.5 Hyperlipidemia, unspecified; F41.9 Anxiety disorder, unspecified; F32.9 Major depressive disorder, single episode, unspecified; J44.9 Chronic obstructive pulmonary disease, unspecified; I10 Essential (primary) hypertension; Z88.2 Allergy status to sulfonamides; Z79.899 Other long term (current) drug therapy; Z79.01 Long term (current) use of anticoagulants; B95.2 Enterococcus as the cause of diseases classified elsewhere; X58.XXXD Exposure to other specified factors, subsequent encounter; Y92.9 Unspecified place or not applicable; Y93.9 Activity, unspecified

== ENCOUNTER 2017-06-30 14:10 | Day surgery (SDC) | payer MEDICARE | END 2017-06-30 19:05 | disposition home or self-care (01) | LOC: M OROP 14:10 | DX: S42.251A Displaced fracture of greater tuberosity of right humerus, initial encounter for closed fracture (principal); S46.011A Strain of muscle(s) and tendon(s) of the rotator cuff of right shoulder, initial encounter; X58.XXXA Exposure to other specified factors, initial encounter; Y93.89 Activity, other specified; Y92.89 Other specified places as the place of occurrence of the external cause; Y99.8 Other external cause status; I10 Essential (primary) hypertension; E78.5 Hyperlipidemia, unspecified; J44.9 Chronic obstructive pulmonary disease, unspecified; M85.80 Other specified disorders of bone density and structure, unspecified site; F41.9 Anxiety disorder, unspecified; Z88.2 Allergy status to sulfonamides; Z79.899 Other long term (current) drug therapy; Z87.891 Personal history of nicotine dependence | CPT/HCPCS: 23630 ==

== ENCOUNTER → 2018-06-02 | Outpatient (REF) | payer MEDICARE ==
[~2018-06-02] MED LIST changes: +ACCU1TAB2 PO; +ACET500T15 PO; -BISACODYL 10 MG SUPP PR; -BISACODYL 5 MG TAB PO; +CALC500T49 PO; +CARV3.12 PO; +DESV50TA3; +DESV50TA3 PO; -FLEET ENEMA PR; +FLOM0.4C39 PO; +IBUPOTC PO; +LOVA20TA2; +LOVA20TA2 PO; +LOVE1INJ SC; +MIRA33504 PO; +MORP15TASA PO; +MS C15TA8 PO; +OXYC-517 PO; +OXYCO5TA PO; +PEG1POW PO; +QUIN20TA26 PO; +QUINAPRIL/HCTZ; +SENN1TAB2 PO; +STRETAB36 PO; +TRAM50TA2 PO; +TYLE500T78 PO; +VENL1TAB35; +VITA-121 PO; +VITA100066 PO; +VITATAB26 PO; +VITMTA PO; -traMADol 50 MG TAB PO
[2018-06-02 13:54] LABS: HEMATOCRIT 41.6 % (36.0-47.0); HEMOGLOBIN 13.5 g/dl (12.0-15.5); MEAN CORPUSCULAR HGB CONC 32.5 g/dl (32.0-36.5); MEAN CORPUSCULAR VOLUME 89.3 fl (80.0-96.0); PLATELET COUNT, AUTOMATED 465 10^3/uL (150-450); RED BLOOD COUNT 4.66 10^6/uL (4.00-5.40); WHITE BLOOD COUNT 6.7 10^3/uL (4.0-10.0)
[2018-06-02 14:23] LABS: ALBUMIN 4.3 GM/DL (3.2-5.2); ALT/SGPT 21 U/L (12-78); BILIRUBIN,TOTAL 0.6 MG/DL (0.2-1.0); BLOOD UREA NITROGEN 15 MG/DL (7-18); CALCIUM LEVEL 9.5 MG/DL (8.8-10.2); CARBON DIOXIDE LEVEL 29 MEQ/L (21-32); CHLORIDE LEVEL 102 MEQ/L (98-107); CHOLESTEROL LEVEL 203 MG/DL (<200); CHOLESTEROL RISK RATIO 3.171 (<5); CREATININE FOR GFR 0.72 MG/DL (0.55-1.30); GLOMERULAR FILTRATION RATE > 60.0 (>39); GLUCOSE, FASTING 85 MG/DL (70-100); HDL CHOLESTEROL 64 MG/DL (>40); LDL CHOLESTEROL 114 MG/DL (<100); NON-HDL-C 139 MG/DL; POTASSIUM SERUM 3.8 MEQ/L (3.5-5.1); SODIUM LEVEL 140 MEQ/L (136-145); TOTAL 25(OH) VITAMIN D 27.4 NG/ML (30.0-100.0); TOTAL PROTEIN 8.1 GM/DL (6.4-8.2); TRIGLYCERIDES LEVEL 125 MG/DL (<150)
== END ==
LOC: M SFHCPLAZ 10:55
PROVIDERS: ATTEND Nurse Practitioner Adult Health
DX: Z00.00 Encounter for general adult medical examination without abnormal findings (principal); I10 Essential (primary) hypertension; E78.2 Mixed hyperlipidemia; E55.9 Vitamin D deficiency, unspecified

== ENCOUNTER → 2018-08-16 | Outpatient (REF) | payer MEDICARE ==
[~2018-08-16] MED LIST changes: -SENN1TAB2 PO; +SENN1TAB40 PO
[2018-08-16 13:19] LABS: BASO % 0.5 % (0.0-1.0); EOS % 0.7 % (0.0-3.0); HEMATOCRIT 39.9 % (36.0-47.0); HEMOGLOBIN 12.9 g/dl (12.0-15.5); LYMPH # 1.6 10^3/uL (1.5-4.5); MEAN CORPUSCULAR HEMOGLOBIN 28.8 pg (27.0-33.0); MEAN CORPUSCULAR HGB CONC 32.3 g/dl (32.0-36.5); MEAN CORPUSCULAR VOLUME 89.1 fl (80.0-96.0); MONO # 0.4 10^3/uL (0.0-0.8); MONO % 6.1 % (0.0-5.0); NEUTROPHILS # 3.8 10^3/uL (1.8-7.7); NEUTROPHILS % 65.4 % (36.0-66.0); PLATELET COUNT, AUTOMATED 482 10^3/uL (150-450); RED BLOOD COUNT 4.48 10^6/uL (4.00-5.40); WHITE BLOOD COUNT 5.9 10^3/uL (4.0-10.0)
[2018-08-16 14:02] LABS: ERYTHROCYTE SEDIMENTATION RATE 17 mm/hr (0-30)
== END ==
LOC: M LABDRAW1 12:41
PROVIDERS: ATTEND Orthopaedic Surgery
DX: M16.11 Unilateral primary osteoarthritis, right hip (principal)